=== PATIENT | female | born 1990 | race African-American/Black ===

== ENCOUNTER → 2016-11-20 | Emergency (ER) | payer MEDICAID ==
--- NOTE | 2016-11-21 00:41 | PD ---
HPI Chief Complaint lightheaded Date Seen: Nov 21, 2016 Travel History International Travel<30 Days: No Contact w/Intl Traveler<30Days: No History of Present Illness HPI 26 yo @ 35w1d. care in [place], [place], visiting area. No records. Patient presents with c/o lightheadedness tonight. She reports not hydrating well today, cant remember drinking water. She feels lightheaded when standing. She denies N/V/GI symptoms, urinary symptoms, SOB or CP. +FM. Denies UC, LOF , VB. Unable to void upon admission. History Past Medical History Medical History: Denies Significant Hx Obstetric History Obstetric History Past Surgical History Surgical History: No Previous Surgery Social History Alcohol Use: No Tobacco Use: No Substance Abuse: No Review of Systems General / Constitutional: No: Fever, Chills Eyes: No: Blurred Vision, Visual changes HENT: Lightheadedness, No: Headaches Cardiovascular: No: Chest Pain or Discomfort, Palpitations Respiratory: No: Cough, Short of Breath Gastrointestinal: No: Nausea, Vomiting, Abdominal Pain Genitourinary: Decreased Urinary Output, No: Urgency, Frequency, Dysuria, Discharge, Vaginal Bleeding Musculoskeletal: No: Limited ROM, Weakness, Cramping Skin: No Rash, No Itching, No Lesions Neurologic: No: Syncope, Coordination Problem Physical Exam v Vital Signs Date Time Temp Pulse Resp B/P Pulse Ox O2 Delivery O2 Flow Rate FiO2 11/21/16 12:30 1:15 114 90 18 112/77 Narrative GENERAL: Well-nourished, well-developed patient. NAD SKIN: Warm and dry. HEAD: Normocephalic and atraumatic. EYES: No scleral icterus. No injection or drainage. ENT: No nasal drainage noted. Mucous membranes pink. Airway patent. NECK: trachea midline. No JVD. CARDIOVASCULAR: Mild tachycardia 110 pulse RESPIRATORY: No accessory muscle use. ABDOMEN/GI: Abdomen soft, non-tender, no rebound, no guarding Gravid TOCO: irritability, resolved with hydration FHT's: Category: I Baseline: 130 Reactive: +acceleration Variability: mod Decels: [-] EXTREMITIES: No cyanosis or edema. BACK: Nontender without obvious deformity. No CVA tenderness. NEUROLOGICAL: Awake and alert. Motor and sensory grossly within normal limits. Normal speech. Data Data Vital Signs Reviewed: Yes Orders Vital Signs (Adult) .ON ADMISSION (11/21/16 00:28) ^ Labor Status (11/21/16 00:28) ^ Non Stress Test (11/21/16 00:28) ^ Hydration (11/21/16 00:28) Labs UA dip: Large Ketones MDM Narrative Course / MDM 35 weeks Dehydration secondary to poor water intake today No GI symptoms Mild tachycardia from dehydration, Afebrile Mild uterine irritability from dehydration, resolved. CAT I FHT No labor Plan given IV fluids symptoms resolved Tachycardia resolved Uterine irritability resolved d/c home hydration reviewed return PRN F/u with OB Dorothea Kendrick MD Nov 21, 2016 00:41
[2016-11-21 01:11] VITALS: PULSE 90
== END | disposition home or self-care (01) ==
LOC: HOBED 23:55
DX: E86.0 Dehydration (principal); O26.93 Pregnancy related conditions, unspecified, third trimester; Z3A.35 35 weeks gestation of pregnancy
CPT/HCPCS: 59025

== ENCOUNTER 2016-12-22 06:36 | Inpatient (IN) | payer MEDICAID ==
[2016-12-22] MEDS ORDERED: OXYTOCIN 10 UNIT/ML AMP ONE (06:44)
[2016-12-22] MEDS ORDERED: LACTATED RINGER'S 1000 ML INJ 1,000 ML IV PRN (07:33)
[2016-12-22] MEDS ORDERED: LACTATED RINGER'S 1000 ML INJ 1,000 ML IV SCH (07:33)
--- NOTE | 2016-12-22 07:36 | HHI.HP ---
History & Physical H&P HPI Chief Complaint Water broke Date Seen: Dec 22, 2016 Travel History International Travel<30 Days: No Contact w/Intl Traveler<30Days: No History of Present Illness HPI Patient is a 26-year-old at 394/7 weeks gestation who presents today for contractions and leaking fluid. Contractions started this morning and her water broke about 15 minutes ago. She is also having vaginal bleeding. She feels the urge to push. She denies any complications with her . care was in [place] and she recently moved to the area. History (Limited) History Past Medical History Medical History: Denies Significant Hx Obstetric History Obstetric History s/p x 2 Past Surgical History Surgical History: No Previous Surgery Family History Family History: Negative Social History Alcohol Use: No Tobacco Use: No Substance Abuse: No Allergies-Medications Allergies-Medications (Allergen,Severity, Reaction): Coded Allergies: No Known Allergies (Unverified , 12/22/16) ROS Review of Systems Except as stated in HPI: all other systems reviewed are Neg General / Constitutional: No: Fever, Chills Eyes: No: Visual changes HENT: No: Headaches Cardiovascular: No: Chest Pain or Discomfort Respiratory: No: Short of Breath Gastrointestinal: No: Nausea, Vomiting Genitourinary: Pelvic Pain, Discharge, Vaginal Bleeding, No: Dysuria, Hematuria Musculoskeletal: No: Edema Psychiatric: No: Substance Abuse Physical Exam Physical Exam Narrative GENERAL: Well-nourished, well-developed patient. SKIN: Warm and dry. HEAD: Normocephalic and atraumatic. EYES: No scleral icterus. No injection or drainage. ENT: No nasal drainage noted. Mucous membranes pink. Airway patent. NECK: Supple, trachea midline. No JVD. CARDIOVASCULAR: Regular rate and rhythm without murmurs, gallops, or rubs. RESPIRATORY: Breath sounds equal bilaterally. No accessory muscle use. ABDOMEN/GI: Abdomen soft, non-tender, bowel sounds present, no rebound, no guarding Gravid to 39 weeks size GENITOURINARY: External Genitalia: intact and normal in appearance BUS glands: normal Cervix: midposition Dilatation: 10 Effacement: 100 Station: 0 Presentation: vertex Membranes: SROM, Meconium FHT's: precipitous delivery, FHT not obtained EXTREMITIES: No cyanosis or edema. BACK: Nontender without obvious deformity. No CVA tenderness. NEUROLOGICAL: Awake and alert. Motor and sensory grossly within normal limits. Normal speech. Data Data Data Vital Signs Reviewed: Yes Orders Oxytocin Inj (Pitocin Inj) (12/22/16 06:44) Fentanyl Inj (Fentanyl Inj) (12/22/16 07:14) Admit To Inpatient (12/22/16 ) Code Status (12/22/16 07:33) Vital Signs (Adult) .Per protocol (12/22/16 07:33) Activity Oob Ad Yoselin (12/22/16 07:33) Heart (12/22/16 07:33) Amnioinfusion (12/22/16 07:33) Urinary Catheter Management .ONCE (12/22/16 07:33) Lactated Ringer's 1000 Ml Inj (Lr 1000 M (12/22/16 07:33) Lactated Ringer's 1000 Ml Inj (Lr 1000 M (12/22/16 07:33) Sodium Chlorid 0.9% 500 Ml Inj (Ns 500 M (12/22/16 07:45) Sodium Chlor 0.9% 1000 Ml Inj (Ns 1000 M (12/22/16 07:53) Lidocaine 1% Inj (50 Ml) (Xylocaine 1% I (12/22/16 07:45) Citric Acid-Sodium Citrate Liq (Bicitra (12/22/16 07:45) Fentanyl Inj (Fentanyl Inj) (12/22/16 07:45) Fentanyl Inj (Fentanyl Inj) (12/22/16 07:45) Complete Blood Count With Diff (12/22/16 07:33) Hold Clot (12/22/16 07:33) Abo/Rh Blood Type (12/22/16 07:33) Urinalysis - C+S If Indicated (12/22/16 07:33) Resp Oxygen Non Rebreathe Mask (12/22/16 ) ^ Epidural / Intrathecal Infus (12/22/16 07:33) Oxytocin 30 Units-500ml Premix (Pitocin (12/22/16 07:45) Lidocaine 1% Inj (50 Ml) (Xylocaine 1% I (12/22/16 07:45) Light Mineral Oil (Muri-Lube Oil) (12/22/16 07:45) Inpatient Certification (12/22/16 ) Specimen To Be Collected PRN (12/22/16 07:33) Vital Signs (Adult) .QSHIFT (12/22/16 07:33) Activity Oob Ad Yoselin (12/22/16 07:33) Ice / Cold Pack PRN (12/22/16 07:33) Discontinue Iv (12/22/16 07:33) Sitz Bath PRN (12/22/16 07:33) ^ Massage (12/22/16 07:33) ^ Rhogam (12/22/16 07:33) Urinary Catheter Management .PRN (12/22/16 07:33) Diet Regular Basic (12/22/16 Breakfast) Sodium Chloride 0.9% Flush (Ns Flush) (12/22/16 09:00) Sodium Chloride 0.9% Flush (Ns Flush) (12/22/16 07:45) Oxytocin 30 Units-500ml Premix (Pitocin (12/22/16 07:45) Acetaminophen (Tylenol) (12/22/16 07:45) Ibuprofen (Motrin) (12/22/16 07:45) Oxycodone-Acetamin 5-325 Mg (Percocet (12/22/16 07:45) Oxycodone-Acetamin 5-325 Mg (Percocet (12/22/16 07:45) Benzocaine 20% Top Spr (Americaine 20% T (12/22/16 07:45) Witch Wendy-Glycerin Pad (Tucks Pads) (12/22/16 07:45) Docusate Sodium-Senna (Laurence-Colace) (12/22/16 07:45) Zolpidem (Ambien) (12/22/16 07:45) MDM MDM Medical Record Reviewed: Yes Narrative Course / MDM 26 year old at 39-4/7 weeks gestation. 1. IUP- Precipitous vaginal delivery. 2. GBS unknown- records requested. sdw Tess Michelle MD, R3 Dec 22, 2016 07:36
[2016-12-22] MEDS ORDERED: LIDOCAINE HCL 1% 50 ML VIAL I-DERMAL PRN (07:45)
[2016-12-22] MEDS ORDERED: OXYTOCIN 30 UNITS-500ML PREMIX 500 ML IV ONE (07:45)
[2016-12-22] MEDS ORDERED: OXYTOCIN 30 UNITS-500ML PREMIX 500 ML IV SCH (07:45)
[2016-12-22] MEDS ORDERED: SODIUM CHLORIDE 0.9% FLUSH 10 ML FLUSH IV FLUSH PRN (07:45)
[2016-12-22] MEDS ORDERED: WITCH HAZEL 50%/GLYCERIN 12.5% 40 PAD JAR TOPICAL PRN (07:45)
[2016-12-22] MEDS ORDERED: ONDANSETRON ODT 4 MG TAB PO PRN (07:45)
[2016-12-22] MEDS ORDERED: CITRIC ACID-SODIUM CITRATE LIQ 30 ML UDC PO SCH (07:45)
[2016-12-22] MEDS ORDERED: DOCUSATE SODIUM 50 MG/SENNA 8.6 MG TAB PO PRN (07:45)
[2016-12-22] MEDS ORDERED: BENZOCAINE 20% TOPICAL SPRAY 60 ML CAN TOPICAL PRN (07:45)
[2016-12-22] MEDS ORDERED: ACETAMINOPHEN 325 MG TAB PO PRN (07:45)
[2016-12-22] MEDS ORDERED: SODIUM CHLORID 0.9% 500 ML INJ 500 ML IV PRN (07:45)
[2016-12-22] MEDS ORDERED: LIDOCAINE HCL 1% 50 ML VIAL INFIL PRN (07:45)
[2016-12-22] MEDS ORDERED: MINERAL OIL 10 ML VIAL TOPICAL PRN (07:45)
[2016-12-22] MEDS ORDERED: ALUMINUM/MAGNESIUM/SIMETH 30 ML CUP PO PRN (07:45)
[2016-12-22] MEDS ORDERED: oxyCODONE/ACETAMINOPHEN 5 MG/325 MG TAB PO PRN ×2 (07:45)
[2016-12-22] MEDS ORDERED: IBUPROFEN 600 MG TAB PO PRN (07:45)
[2016-12-22] MEDS ORDERED: ZOLPIDEM TARTRATE 5 MG TAB PO PRN (07:45)
[2016-12-22 07:46] VITALS: BP 111/65; PULSE 83
[2016-12-22 07:50] VITALS: RESP 18
[2016-12-22] MEDS ORDERED: SODIUM CHLOR 0.9% 1000 ML INJ 1,000 ML IV PRN (07:53)
[2016-12-22 08:01] VITALS: BP 109/67; PULSE 75
[2016-12-22 08:24] LABS: AUTOMATED NEUTROPHIL # 6.3 TH/MM3 (1.8-7.7); BASOPHIL % 0.2 % (0.0-2.0); EOSINOPHIL # 0.1 TH/MM3 (0-0.4); EOSINOPHIL % 0.8 % (0.0-4.0); HEMATOCRIT 39.7 % (35.0-46.0); HEMO FLAGS DIFF FINAL; LYMPH % 18.3 % (9.0-44.0); LYMPHOCYTE # 1.6 TH/MM3 (1.0-4.8); MEAN CELL VOLUME 86.4 FL (80.0-100.0); MEAN CORPUSCULAR HEMOGLOBIN 29.9 PG (27.0-34.0); MEAN CORPUSCULAR HGB CONC 34.6 % (32.0-36.0); MONO % 8.9 % (0.0-8.0); NEUT % 71.8 % (16.0-70.0); PLATELET COUNT 155 TH/MM3 (150-450); RED CELL DISTRIBUTION WIDTH 14.1 % (11.6-17.2); WHITE BLOOD COUNT 8.8 TH/MM3 (4.0-11.0)
[2016-12-22 08:31] VITALS: BP 116/64; PULSE 91
[2016-12-22] MEDS ORDERED: SODIUM CHLORIDE 0.9% FLUSH 10 ML FLUSH IV FLUSH SCH (09:00)
[2016-12-22 09:45] VITALS: BP 121/70; PULSE 79; RESP 16; TEMP 98.1
[2016-12-22] MEDS ORDERED: MEASLES, MUMPS, RUBELLA VACCINE 0.5 ML VIAL SQ ONE (16:00)
[2016-12-22] MEDS ORDERED: DIPHTH/TETANUS/ACEL PERTUSSIS (BOOSTER) 0.5 ML VIAL/PFS IM ONE (16:00)
[2016-12-22 19:24] VITALS: BP 91/53; PULSE 82; RESP 18; TEMP 99.1
[2016-12-23 03:19] LABS: BLOOD, URINE LARGE (NEG); COMMENT (UR) CULTURE INDICATED; CULTURE IF INDICATED CULTURE INDICATED; GLUCOSE,URINE NEG (NEG); KETONE, URINE NEG (NEG); MUCUS URINE FEW /lpf (OCC); NITRITE,URINE NEG (NEG); PH, URINE 5.5 (5.0-8.5); SQUAMOUS EPITHELIAL CELL URINE 2 /hpf (0-5); URINE COLOR DARK-BROWN (YELLW/STRAW)
--- NOTE | 2016-12-23 05:57 | PD.OB.DELI ---
Delivery Date: Dec 22, 2016 Anesthesia: None Episiotomy: None Vaginal Delivery: Normal Presentation: Occiput anterior Nuchal Cord: None Delayed cord clamping (45 sec): Yes Infant: Male One Minute : 7 Five Minute : 7 Ten Minute : 9 Weight: 3900g Placenta: Spontaneous delivery, Intact, 3 vessel cord Laceration: Vaginal laceration, Perineal laceration, 2 deg Repair: Chromic running (3.0 chromic) Estimated blood loss: 250cc Additional Information Precipitous delivery. Pitocin 20units IM administered after delivery of placenta. Supervised by Dr. Mitchell. Tess Silver MD, R3 Dec 23, 2016 05:57
--- NOTE | 2016-12-23 08:24 | HHI.OB ---
Subjective Post Day: 1 Remarks day # 1 AFVSS overnight. Decreased lochia. Denies dysuria. No breast tenderness. She is feeding the baby via breast. Appetite good. No nausea or vomiting. Ambulating well. Denies calf pain or shortness of breath. Otherwise, she is doing well this morning and has no other complaints. (Samir Carter MD R1) Objective Vitals/I&O Vital Signs Date Time Temp Pulse Resp B/P Pulse Ox O2 Delivery O2 Flow Rate FiO2 12/22/16 19:24 99.1 82 18 91/53 12/22/16 09:45 98.1 79 16 121/70 12/22/16 08:31 91 116/64 Objective Remarks GENERAL: Well-nourished, well-developed patient. CARDIOVASCULAR: Regular rate and rhythm without murmurs, gallops, or rubs. RESPIRATORY: Breath sounds equal bilaterally. No accessory muscle use. ABDOMEN/GI: Abdomen soft, non-tender. Fundus: Firm, non-tender at umbilicus. GENITOURINARY: Light to moderate bleeding. EXTREMITIES: No cyanosis or edema, non-tender, without signs of DVT. Medications and IVs Current Medications Medications (Trade) Dose Ordered Sig/Elisabet Route Start Time Stop Time Status Last Admin (Muri-Lube Oil) 10 ml UNSCH PRN TOPICAL 12/22/16 07:45 (Tylenol) 650 mg Q4H PRN PO 12/22/16 07:45 (Motrin) 600 mg Q6H PRN PO 12/22/16 07:45 (Percocet 5-325 Mg) 1 tab Q4H PRN PO 12/22/16 07:45 (Percocet 5-325 Mg) 2 tab Q4H PRN PO 12/22/16 07:45 (Americaine 20% Top Spr) 1 spray Q4H PRN TOPICAL 12/22/16 07:45 (Tucks Pads) 1 applic QID PRN TOPICAL 12/22/16 07:45 (Laurence-Colace) 2 tab Q12H PRN PO 12/22/16 07:45 (Ambien) 5 mg HS PRN PO 12/22/16 07:45 (Mag-Al Plus Susp Liq) 15 ml Q8H PRN PO 12/22/16 07:45 (Zofran Odt) 4 mg Q6H PRN PO 12/22/16 07:45 (Samir Carter MD R1) Assessment/Plan Assessment and Plan 26 y/o female who is PPD# 1 s/p . -Continue routine care. -Percocet and Motrin PRN pain. -Encouraged OOB. Advised pelvic rest for 6 wks. -Re: ctrl, she would like control pills. -D/c in [address] Crane, Dr. Silver (Samri Carter MD R1) Collaborating MD Comments Agree with patient care and management. (Negar Crane MD) Samir Carter MD R1 Dec 23, 2016 08:24 Ngear Crane MD Dec 24, 2016 12:03
[2016-12-23 08:33] LABS: RUBELLA IGG ANTIBODY 98.9 IU/mL (10.0-500.0); RUBELLA STATUS IMMUNE (IMMUNE)
[2016-12-23 09:25] VITALS: BP 114/62; PULSE 73; RESP 18; TEMP 97.9
[2016-12-23 19:56] VITALS: BP 103/62; PULSE 73; RESP 18; TEMP 98.7
[2016-12-24] LABS: CHLAMYDIA PCR NOT DETECTED (NOT DETECT); NEISSERIA PCR NOT DETECTED (NOT DETECT)
[2016-12-24 07:50] VITALS: BP 113/79; PULSE 76; RESP 16; TEMP 98
[2016-12-24] MEDS ORDERED: PERI8.6T PO (09:43)
[2016-12-24] MEDS ORDERED: IBUP-232 PO (09:43)
--- NOTE | 2016-12-24 09:45 | HHI.DCPOC ---
Discharge Care Plan Report Symptoms to Your Doctor -Temperature above 100.5 degrees -Redness, of incision or excessive or foul smelling drainage -Unusual pain or calf pain -Increased vaginal bleeding -Painful or difficulty urinating -Feelings of extreme sadness or anxiety after 2 weeks Goals to Promote Your Health * To prevent worsening of your condition and complications * To maintain your health at the optimal level Directions to Meet Your Goals Take your medications as prescribed Follow your dietary instruction Follow activity as directed Ensure plenty of rest for recovery Drink fluids for hydration Keep your appointments as scheduled Take your immunizations and boosters as scheduled If your symptoms worsen call your PCP, if no PCP go to Urgent Care Center or Emergency Room Smoking is Dangerous to Your Health. Avoid second hand smoke Call the 24-hour crisis hotline for domestic abuse at aSmir Carter MD R1 Dec 24, 2016 09:45
--- NOTE | 2016-12-24 09:47 | HHI.OB ---
Subjective Post Day: 2 Remarks day # 2 AFVSS overnight. Decreased lochia. Denies dysuria. No breast tenderness. Appetite good. No nausea or vomiting. Ambulating well. Denies calf pain or shortness of breath. Otherwise, she is doing well this morning and has no other complaints. Objective Vitals/I&O Vital Signs Date Time Temp Pulse Resp B/P Pulse Ox O2 Delivery O2 Flow Rate FiO2 12/24/16 07:50 98.0 76 16 113/79 12/23/16 19:56 98.7 73 18 103/62 Objective Remarks GENERAL: Well-nourished, well-developed patient. CARDIOVASCULAR: Regular rate and rhythm without murmurs, gallops, or rubs. RESPIRATORY: Breath sounds equal bilaterally. No accessory muscle use. ABDOMEN/GI: Abdomen soft, non-tender. Fundus: Firm, non-tender at umbilicus. GENITOURINARY: Light to moderate bleeding. EXTREMITIES: No cyanosis or edema, non-tender, without signs of DVT. Medications and IVs Current Medications Medications (Trade) Dose Ordered Sig/Elisabet Route Start Time Stop Time Status Last Admin (Muri-Lube Oil) 10 ml UNSCH PRN TOPICAL 12/22/16 07:45 (Tylenol) 650 mg Q4H PRN PO 12/22/16 07:45 (Motrin) 600 mg Q6H PRN PO 12/22/16 07:45 (Percocet 5-325 Mg) 1 tab Q4H PRN PO 12/22/16 07:45 (Percocet 5-325 Mg) 2 tab Q4H PRN PO 12/22/16 07:45 (Americaine 20% Top Spr) 1 spray Q4H PRN TOPICAL 12/22/16 07:45 12/23/16 22:39 (Tucks Pads) 1 applic QID PRN TOPICAL 12/22/16 07:45 12/23/16 22:39 (Laurence-Colace) 2 tab Q12H PRN PO 12/22/16 07:45 (Ambien) 5 mg HS PRN PO 12/22/16 07:45 (Mag-Al Plus Susp Liq) 15 ml Q8H PRN PO 12/22/16 07:45 (Zofran Odt) 4 mg Q6H PRN PO 12/22/16 07:45 Assessment/Plan Assessment and Plan 26 y/o female who is PPD# 2 s/p . -Continue routine care. -Percocet and Motrin PRN pain. -Encouraged OOB. Advised pelvic rest for 6 wks. -Re: ctrl, she would like control pills. -D/c today Dr. Mitchell, Dr. Nadeem Carter,Samir Hernandez MD R1 Dec 24, 2016 09:47
== END 2016-12-24 17:25 | disposition home or self-care (01) | DRG 775 ==
LOC: HOBED 06:36 → H2EA 06:43 → H1EA 09:02
PROVIDERS: ADMIT Obstetrics & Gynecology Maternal & Fetal Medicine; ATTEND Obstetrics & Gynecology Maternal & Fetal Medicine
PROC: 10E0XZZ Delivery of Products of Conception, External Approach (ICD-10-PCS; principal; 2016-12-22)
PROC: 0KQM0ZZ Repair Perineum Muscle, Open Approach (ICD-10-PCS; 2016-12-22)
DX: O62.3 Precipitate labor (principal); O70.1 Second degree perineal laceration during delivery; Z3A.39 39 weeks gestation of pregnancy; Z37.0 Single live birth
CPT/HCPCS: 80074; 81001; 85025; 86592; 86703; 86762; 86787; 86900; 86901; 87086; 87150; 87491; 87591; 90715; J2590; J3010